=== PATIENT | female | born 1940 | race Two or more races ===

== ENCOUNTER 2020-08-09 11:44 | Emergency (ER) | payer OTHER ==
[~2020-08-09] VITALS: Ht 160 cm; Wt 59.9 kg
[2020-08-09] MEDS ORDERED: SYNTHROID100 MCG (12:04)
[2020-08-09] MEDS ORDERED: ZIAC 2.5-6.251 EACH (12:05)
[2020-08-09] MEDS ORDERED: INTESTINEX680 M1 PO (16:43)
[2020-08-09] MEDS ORDERED: AMOX-CLAV 875-1 EACH PO (16:43)
== END 2020-08-09 18:26 | disposition home or self-care (01) ==
LOC: ER 11:44
DX: L97.818 Non-pressure chronic ulcer of other part of right lower leg with other specified severity (principal); L03.115 Cellulitis of right lower limb